=== PATIENT | female | born 1940 | race Caucasian/White ===

== ENCOUNTER 2021-09-04 05:33 | Inpatient (IN) ==
[2021-09-04] MEDS ORDERED: VANCOMYCIN INJ 1,000 MG in SODIUM CHLORIDE 0.9% 250 ML IV ONE (06:00)
[2021-09-04] MEDS ORDERED: fentaNYL 100 MCG/2 ML VIAL ONE (06:20)
[2021-09-04] MEDS ORDERED: MIDAZOLAM 2 MG/2 ML VIAL ONE (06:20)
[2021-09-04] MEDS ORDERED: LIDOCAINE 1% 5 ML VIAL ONE (06:25)
[2021-09-04] MEDS ORDERED: DEXAMETHASONE 4 MG/1 ML VIAL ONE (06:25)
[2021-09-04] MEDS ORDERED: ROPIVACAINE 0.5% 30 ML VIAL ONE (06:25)
[2021-09-04] MEDS ORDERED: GABAPENTIN 400 MG CAPSULE PO ONE (06:43)
[2021-09-04] MEDS ORDERED: ACETAMINOPHEN 500 MG TABLET PO ONE (06:43)
[2021-09-04] MEDS ORDERED: FAMOTIDINE 20 MG TABLET PO ONE (06:43)
[2021-09-04] MEDS ORDERED: LACTATED RINGERS 1,000 ML IV SCH (07:00)
[2021-09-04 07:07] LABS: INR 0.9; PT Patient Result 10.2 SECS (10.5-12.0); Partial Thromboplastin Time 25.6 SECS (23.8-32.1)
[2021-09-04] MEDS ORDERED: BUPIVACAINE SPINAL 0.75% 2 ML AMP SPINAL ONE (07:07)
[2021-09-04] MEDS ORDERED: buprenorphine HCL 0.3 MG/ML VIAL ONE (07:07)
[2021-09-04] MEDS ORDERED: KETAMINE 500 MG/10 ML VIAL ONE (07:37)
[2021-09-04] MEDS ORDERED: diphenhydrAMINE CAP 25 MG CAPSULE PO PRN (07:42)
[2021-09-04] MEDS ORDERED: HYDROmorphone 1 MG/1 ML SYRINGE IV PRN (07:42)
[2021-09-04] MEDS ORDERED: MAGNESIUM HYDROXIDE SUSP 30 ML UDCUP PO PRN (07:42)
[2021-09-04] MEDS ORDERED: PHENYLEPHRINE 1 MG/10 ML SYRINGE IV ONE (07:44)
[2021-09-04] MEDS ORDERED: TRANEXAMIC ACID 1,000 MG/10 ML VIAL ONE (07:47)
[2021-09-04] MEDS ORDERED: BACITRACIN OINT 0.9 GM PACK TOP ONE (08:10)
[2021-09-04] MEDS ORDERED: ePHEDrine 50 MG/ML VIAL ONE (08:50)
[2021-09-04] MEDS ORDERED: ONDANSETRON 4 MG/2 ML VIAL ONE (08:52)
[2021-09-04 09:01] LABS: Bacteria,Urine Occasional /HPF (Few); Mucus,Urine Occasional /LPF (Occasional); RBC,Urine 2 /HPF (0-4)
[2021-09-04 09:02] LABS: Bilirubin,Urine Negative (Negative); Blood, Urine Small mg/dL (Negative); Glucose,Urine (UA) Negative (Negative); Ketones,Urine Negative (Negative); Nitrite,Urine Negative (Negative); Protein,Urine Negative (Negative); Urine Appearance Clear (Clear); Urine Color Yellow (Yellow); Urine Specific Gravity > 1.030 (1.001-1.035); Urine Urobilinogen 0.2 eU/dL (<2.0); Urine pH 5.5 (4.5-8.0)
[2021-09-04] MEDS: ONDANSETRON 4 MG/2 ML VIAL IV PRN ×2 (09:45→17:46)
[2021-09-04] MEDS ORDERED: PROMETHAZINE INJ 12.5 MG in SODIUM CHLORIDE 0.9% 50 ML IV ONE (12:07)
[2021-09-04] MEDS ORDERED: PROMETHAZINE 25 MG/1 ML VIAL ONE (12:08)
[2021-09-04] MEDS: LACTATED RINGERS 1,000 ML IV SCH ×2 (12:50→23:24)
[2021-09-04] MEDS: KETOROLAC 15 MG/1 ML VIAL IV SCH ×3 (16:01→20:46)
[2021-09-04] MEDS: GABAPENTIN 300 MG CAPSULE PO SCH (20:45)
[2021-09-04] MEDS: DOCUSATE SODIUM 100 MG CAPSULE PO SCH (20:45)
[2021-09-05] MEDS ORDERED: FONDAPARINUX 2.5 MG/0.5 ML SYRINGE SUBCUT SCH (02:00)
[2021-09-05] MEDS: LACTATED RINGERS 1,000 ML IV SCH (05:47)
[2021-09-05 06:24] LABS: Basophils % 0.1 % (0.0-0.8); Hematocrit 29.1 VOL% (35.7-47.0); Hemoglobin 9.4 GM/DL (12.0-16.0); Immature Granulocytes % 0.4 %; Immature Granulocytes Absolute 0.04 #; Lymphocytes # 1.4 10*3/uL (1.4-4.0); Lymphocytes % 15.1 % (21.3-54.2); Mean Corpuscular HGB Conc 32.3 GM/DL (32-36); Monocytes # 0.8 10*3/uL (0.11-0.8); Monocytes % 8.3 % (1.7-12.7); Neutrophils % 76.1 % (38.7-73.9); Platelet Count 145 T/CUMM (130-400); Red Blood Count 3.13 MC/CUMM (3.8-5.5); Red Cell Distribution Width 13.1 % (9.3-17.3); White Blood Count 9.3 T/CUMM (4-12)
[2021-09-05 06:50] LABS: Calcium 7.7 MG/DL (8.5-10.1); Potassium 4.5 MMOL/L (3.5-5.1)
[2021-09-05] MEDS: CHOLECALCIFEROL 1,000 UNIT TABLET PO SCH (09:22)
[2021-09-05] MEDS: DOCUSATE SODIUM 100 MG CAPSULE PO SCH ×2 (09:22→20:48)
[2021-09-05] MEDS: FONDAPARINUX 2.5 MG/0.5 ML SYRINGE SUBCUT SCH (09:23)
[2021-09-05] MEDS ORDERED: TUBERCULIN SKIN TEST 0.1 ML SYRINGE INTRADERM ONE (10:00)
[2021-09-05] MEDS: GABAPENTIN 300 MG CAPSULE PO SCH (20:49)
[2021-09-06 06:24] LABS: Basophils % 0.3 % (0.0-0.8); Eosinophils # 0.1 10*3/uL (0.0-0.87); Eosinophils % 0.6 % (0.00-10.9); Hematocrit 29.2 VOL% (35.7-47.0); Hemoglobin 9.7 GM/DL (12.0-16.0); Immature Granulocytes % 0.6 %; Immature Granulocytes Absolute 0.06 #; Lymphocytes # 2.1 10*3/uL (1.4-4.0); Lymphocytes % 20.8 % (21.3-54.2); Mean Corpuscular HGB Conc 33.2 GM/DL (32-36); Mean Corpuscular Volume 92.7 FL (87-102); Mean Platelet Volume 11.2 FL (9.6-12.0); Monocytes # 0.8 10*3/uL (0.11-0.8); Monocytes % 7.7 % (1.7-12.7); Platelet Count 146 T/CUMM (130-400); Red Blood Count 3.15 MC/CUMM (3.8-5.5); Red Cell Distribution Width 13.2 % (9.3-17.3); White Blood Count 10.1 T/CUMM (4-12)
[2021-09-06] MEDS: FONDAPARINUX 2.5 MG/0.5 ML SYRINGE SUBCUT SCH (09:44)
[2021-09-06] MEDS: DOCUSATE SODIUM 100 MG CAPSULE PO SCH (09:44)
[2021-09-06] MEDS: CHOLECALCIFEROL 1,000 UNIT TABLET PO SCH (09:45)
[2021-09-06 12:11] VITALS: BP 130/61
== END 2021-09-06 13:10 | disposition swing bed (61) | DRG 470 ==
LOC: N.OR 05:33 → N.SDSINP 05:35 → EDSTATUS 07:30 → N.SDSINP 07:42 → N.3E 13:43
PROVIDERS: ADMIT Orthopaedic Surgery; ATTEND Orthopaedic Surgery